=== PATIENT | male | born 1950 | race Two or more races ===

== ENCOUNTER 2020-06-10 08:32 | Day surgery (SDC) | payer OTHER | END 2020-06-10 13:35 | disposition home or self-care (01) | LOC: AMB-ENDOS 08:32 | PROVIDERS: ATTEND Colon & Rectal Surgery | DX: D12.3 Benign neoplasm of transverse colon (principal); K64.1 Second degree hemorrhoids; Z20.828 Contact with and (suspected) exposure to other viral communicable diseases ==

== ENCOUNTER 2020-08-09 11:00 | Inpatient (IN) | payer OTHER ==
[~2020-08-09] VITALS: Ht 172.7 cm; Wt 76.7 kg
[2020-08-09] MEDS ORDERED: COZAAR100 MG PO (13:33)
[2020-08-09] MEDS ORDERED: CLONAZEPAM2 M1 PO (13:33)
[2020-08-09] MEDS ORDERED: NORVASC5 MG PO (13:33)
[2020-08-09] MEDS ORDERED: CRESTOR20 MG PO (13:34)
[2020-08-09] MEDS ORDERED: OMEPRAZOLE MAGN20 MG PO (13:34)
[2020-08-09] MEDS ORDERED: CIALIS20 MG PO (13:34)
[2020-08-09] MEDS ORDERED: GLUCOPHAGE XR500 MG PO (13:35)
== END 2020-08-19 17:53 | disposition home or self-care (01) | DRG 330 ==
LOC: EDSTATUS 11:00 → ADM 11:00 → PED 08-16 05:53 → O/R 08-16 05:53 → SURH 08-16 11:00 → PED 08-16 16:24 → SURH 08-16 19:45 → PED 08-19 17:53
PROVIDERS: ADMIT Colon & Rectal Surgery; ATTEND Colon & Rectal Surgery
PROC: 07TB4ZZ Resection of Mesenteric Lymphatic, Percutaneous Endoscopic Approach (ICD-10-PCS; 2020-08-16)
PROC: 0DQ84ZZ Repair Small Intestine, Percutaneous Endoscopic Approach (ICD-10-PCS; 2020-08-16)
PROC: 0DTF4ZZ Resection of Right Large Intestine, Percutaneous Endoscopic Approach (ICD-10-PCS; principal; 2020-08-16 19:45)
DX: D12.2 Benign neoplasm of ascending colon (principal); K91.72 Accidental puncture and laceration of a digestive system organ or structure during other procedure; D12.0 Benign neoplasm of cecum; Z20.828 Contact with and (suspected) exposure to other viral communicable diseases